=== PATIENT | male | born 1970 | race Caucasian/White ===

== ENCOUNTER 2017-04-22 07:34 | Observation (INO) ==
[~2017-04-22 07:34] MED LIST: LIDOCAINE W/ SODIUM BICARB 0.5 ML SYR ONE; Lactated Ringers 1,000 ML PRIMARY IV ONE; PROPOFOL 10 MG/1 ML (200 MG/20 ML) VIAL IV ONE
[2017-04-22] MEDS ORDERED: LIDOCAINE W/ SODIUM BICARB 0.5 ML SYR SUBD ONE (08:00)
[2017-04-22] MEDS: Lactated Ringers 1,000 ML PRIMARY IV SCH ×2 (08:10→14:47)
--- NOTE | 2017-04-22 09:26 | GEN.OPNOTE ---
Colonoscopy Procedure Note Surgery Date: 04/22/17 Preoperative Diagnosis: History of diverticulitis. Colovesical fistula. Postoperative Diagnosis: Same. Procedure: Complete colonoscopy with biopsies at 20 cm from the anal verge. Surgeon: Candelario Plummer MD Anesthesia Provider: Priscila Washington CRNA Anesthesia Type: MAC Indications: Patient is a 46-year-old male who had diverticulitis approximately a month ago. He had a follow-up CT which showed air in his bladder. He has a colovesical fistula and a history of acute diverticulitis. He is taken for colonoscopic evaluation. Findings: Prep : [Excellent] Cecum : [Normal] Ascending : [Normal] Transverse : [Normal] Sigmoid : [Diverticulosis. Inflammatory changes and narrowing at 20 cm from the anal verge. Biopsies were taken. Mucosa appeared inflamed.] Rectum : [Normal] Digital Rectal Exam : [No perianal pathology. Prostate of normal size and consistency.] A lubricated flexible colonoscope was inserted and passed to the blind end of the cecum. The appendiceal orifice and ileocecal valve were clearly seen. Air was aspirated as the scope was withdrawn. The cecum, ascending colon, hepatic flexure, transverse colon, splenic flexure, and descending colon were unremarkable. In the sigmoid colon there is an area of diverticulosis. There is erythema and friability of the mucosa. Multiple biopsies were taken. Hemostasis was assured. There was narrowing of the colon at this area also. The scope was withdrawn into the remainder of a normal distal sigmoid colon and rectum. The scope was withdrawn completing the procedure. The patient tolerated the entire procedure well without complication. He was taken to outpatient surgery in stable condition. Follow-up will be in my office after he sees the urologist on the . He is scheduled for consultation and cystoscopy at that time. We will discuss the biopsies and plan surgical treatment for his colovesical fistula.
--- NOTE | 2017-04-22 11:41 | CRNA.PROGR ---
Post Anesthesia Phase II - Post Anesthesia Phase II Patient Stable and Discharged To: Phase II Care Assumed By Surgeon: Candelario Plummer MD Temperature: 97.3 F Pulse Rate: 85 Respiratory Rate: 19 Blood Pressure: 155/123 Pulse Ox: 90 Total Wilfrido Score at Discharge: 9 Post Anesthesia Discharge Criteria Met: Yes
--- NOTE | 2017-04-22 11:41 | CRNA.PROGR ---
Anesthesia Time - - Start date: 04/22/17 End date: 04/22/17 - Procedure/Recovery Time Anesthesia : Time In: 08:39 Anesthesia : Time Out: 09:22 Anesthesia : Total Time: 43 - Total Anesthesia Time Total Anesthesia Time (minutes): 43 - Other Weight: 66.678 kg Height: 5 ft 6 in Body Mass Index (BMI): 23.7 Physical Status: P3 (Tobacco, Heavy alcohol use.) Anesthesia Type: MAC
--- NOTE | 2017-04-22 13:26 | DI ---
KUB and UPRIGHT ABDOMEN, 04/22/2017 12:58 PM: Clinical History: Abdominal pain following colonoscopy. The procedure was performed approximately 2 h ours earlier. Previous Exam: None at this facility. There are no soft tissue or bony abnormalities. There is a large amount of gas in the cecum and a mod erate amount in the transverse colon but the remainder of the large bowel is completely decompressed. The cecum has an estimated diameter between 10-12 centimeters. There is no free air or fluid. There are no abnormal radiodensities. Readin. There is no evidence of free air in the abdomen following the colonoscopy procedure. 2. The cecum is distended with air. It is "malrotated" and lies in the epigastric region. It is dist ended to a caliber between 10-12 cm.
--- NOTE | 2017-04-22 13:47 | PDOC(PROG) ---
Date and Time of Service: 04/22/2017 1:30 PM Interval History: Patient underwent a colonoscopy earlier today. He has diverticulosis, a history of diverticulitis, and a colovesical fistula. He had a narrow spot in his sigmoid colon. There was also inflammation. I tried to aspirate as much air as possible but postoperatively the patient was uncomfortable and distended. He is passing some gas but remains distended. An x-ray shows a lot of gas still in the cecum. The cecum is dilated. There is no free air. The rest of the colon is largely decompressed. There is gas in the rectum. He is much more comfortable than initially. [place] about [place] out of [place]. He certainly does not have an acute abdomen. I told him the safest thing is to watch him overnight to make sure he clears all that air. We will check an x-ray in the morning and plan discharge then. If he does not clear the air we may need to consider colonoscopic decompression. The reason to not do that at this time is that I'm worried about the narrowed area at his colovesical fistula site. I'm worried that we may introduce more air and make things worse. I discussed all the above with the patient. She is going to spend the night in observation status. We'll plan home tomorrow. Objective : Data - Vital Signs Vital Signs and I&O: Vital Signs - Last Taken Temperature 97.3 F 04/22/17 11:41 Pulse Rate 95 04/22/17 12:45 Respiratory Rate 16 04/22/17 12:45 Blood Pressure 119/100 04/22/17 12:45 Pulse Ox 91 04/22/17 12:45 Intake and Output (24hr x 4 totals) 04/20/17 04/21/17 04/22/17 04/23/17 05:59 05:59 05:59 05:59 Intake Total 500 / 500 Balance 500 / 500 Objective : Exam - General General Appearance: Cooperative, Mild Distress - Respiratory Respiratory Exam: Clear to Auscultation - Bilaterally, Breathing Non Labored - Cardiovascular Cardiovascular Exam: No Murmur - GI/Abdominal GI/Abdominal Exam: Normal Bowel Sounds, Soft, Distended Additional GI/Abdominal Exam Details: Abdomen is full but soft. It is tympanitic. There is no significant abdominal tenderness. There are good bowel tones. - Neurological Neurological Exam: Alert, Oriented x 3 - Psychiatric Psychiatric Exam: Normal Affect, Normal Mood Assessment and Plan - Patient Problems (1) Colon distention Current Visit: Yes Status: Acute Priority: High Onset Date: 04/22/17 Comment: Clearly related to his colonoscopy. With this area of stricture and inflammation I think it is important to watch him and make sure he passes this gas and decompresses his cecum prior to discharging him home. We'll admit for overnight observation. Clear liquids tonight. Check an x-ray in the morning. Code(s): K63.89 - Other specified diseases of intestine (2) Colovesical fistula Current Visit: Yes Status: Acute Comment: Chronic and stable. Inflammation at the site. Roughly 20 cm from the anal verge. Code(s): N32.1 - Vesicointestinal fistula
[2017-04-22] MEDS ORDERED: NORMAL SALINE 10 ML SYRINGE FLUSH IVP PRN (14:20)
[2017-04-22] MEDS ORDERED: Lactated Ringers 1,000 ML PRIMARY IV SCH (14:20)
--- NOTE | 2017-04-22 19:44 | PDOC(PROG) ---
General Note Progress Note: The patient underwent colonoscopy approximately 11 hours ago. He had a sigmoid stricture at the site of his colovesical fistula. There was inflamed tissue and I needed to do some biopsies. I believe I introduced some air at that time as it was difficult to visualize this area. I tried to remove all the air but a postoperative x-ray showed a distended cecum. It measured between 11 and 12 cm. This was several hours after the procedure. There was no free air. There was a lot of air in the transverse colon but the distal colon was decompressed. There was some air in the rectum. He was admitted for observation as he lives about an hour from the hospital. I came to check on him this evening. He remains distended. He is having intermittent cramping but no constant abdominal pain. He reports he is pain free when he is laying in bed until cramps hit him. He has passed some flatus but not a lot. He has been ambulating. He has tried multiple positions. I would have expected the air to pass by now. On physical examination his abdomen is distended and tympanitic. He has rushes and tinkles. He has some diffuse mild tenderness. Certainly not an acute abdomen. I think he needs decompression. I'm worried about a possible cecal volvulus or a cecal bascule. I have recommended and he has accepted colonoscopic decompression.The procedure has been discussed with the patient in complete yet simple terms including benefits, risks, and alternatives. All questions have been answered. Informed consent has been obtained. If that does not work we'll need to consider a Gastrografin enema. Further recommendations pending the findings. Patient Problems - Patient Problem List (1) Colon distention Current Visit: Yes Status: Acute Onset Date: 04/22/17 Priority: High Code(s): K63.89 - Other specified diseases of intestine Category: Medical (2) Colovesical fistula Current Visit: Yes Status: Acute Code(s): N32.1 - Vesicointestinal fistula Category: Medical
[2017-04-22] MEDS ORDERED: MIDAZOLAM 5 MG/1 ML ONE (19:45)
[2017-04-22] MEDS ORDERED: PROPOFOL 10 MG/1 ML (200 MG/20 ML) VIAL IV ONE (19:45)
[2017-04-22] MEDS ORDERED: D5-1/2NS + 20mEq KCL 1,000 ML PRIMARY IV SCH (20:15)
--- NOTE | 2017-04-22 20:23 | GEN.OPNOTE ---
Colonoscopy Procedure Note Surgery Date: 04/22/17 Preoperative Diagnosis: Post-colonoscopy cecal distention, diverticular stricture of the sigmoid colon, colovesical fistula. Postoperative Diagnosis: Post-colonoscopy cecal distention, diverticular stricture of the sigmoid colon, colovesical fistula. Procedure: Complete colonoscopy with decompression. Surgeon: Candelario Plummer MD Anesthesia Provider: Priscila Washington CRNA Anesthesia Type: MAC Indications: Patient underwent colonoscopy approximately 12 hours ago. He had a significant cecal distention several hours postoperatively, on x-rays. I came to see him this evening and he was still having a lot of cramps and pain. He was quite distended. He was not passing that much gas. I was worried about a possible volvulus or cecal bascule. I thought it was best to decompress the cecum to prevent problems. He was taken for colonoscopy for decompression. Findings: Prep : [Adequate] Cecum : [Distended. Decompressed. Viable mucosa.] Ascending : [Normal] Transverse : [Normal] Sigmoid : [Diverticular stricture and colovesical fistula with inflammatory tissue] Rectum : [Normal] Digital Rectal Exam : [Normal] A lubricated flexible colonoscope was inserted and passed to the blind end of the cecum. It was difficult to pass the scope through the diverticular stricture. Once through the scope was passed to the blind end of the cecum. The ileocecal valve and the appendiceal orifice were seen. The colon was decompressed as the scope was withdrawn. The scope was withdrawn completing the procedure. The patient tolerated the procedure well without complication. He will be taken back to observation in stable condition. His abdomen is soft at this time. It is no longer distended. We'll check an x-ray in the morning and plan discharged if tolerating diet.
--- NOTE | 2017-04-22 20:34 | CRNA.PROGR ---
Anesthesia Time - - Start date: 04/22/17 End date: 04/22/17 - Procedure/Recovery Time Anesthesia : Time In: 19:37 Anesthesia : Time Out: 20:23 Anesthesia : Total Time: 46 - Total Anesthesia Time Total Anesthesia Time (minutes): 46 - Other Weight: 66.678 kg Height: 5 ft 6 in Body Mass Index (BMI): 23.7 Physical Status: P3 (Tobacco, alcohol) Anesthesia Type: MAC
--- NOTE | 2017-04-22 20:35 | CRNA.PROGR ---
Post Anesthesia Phase II - Post Anesthesia Phase II Patient Stable and Discharged To: Med/Surg Care Assumed By Surgeon: Candelario Plummer MD Temperature: 98.1 F Pulse Rate: 95 Respiratory Rate: 25 Blood Pressure: 119/79 Pulse Ox: 100 Total Wilfrido Score at Discharge: 9 Post Anesthesia Discharge Criteria Met: Yes Additional Details: Decompression colonoscopy. Pt's symptoms greatly relieved.
[2017-04-22] MEDS: Amoxicill/Clav 875/125mg Tab 1 TAB TAB PO SCH (20:58)
[2017-04-22] MEDS ORDERED: LISINOPRIL 10 MG TABLET PO SCH (21:00)
[2017-04-22] MEDS: NICOTINE 21 MG /DAY PATCH TRANSDERM SCH (22:59)
[2017-04-23 06:45] VITALS: BP 142/97; RESP 18; TEMP 97.3; O2SAT 96
[2017-04-23] MEDS ORDERED: PANTOPRAZOLE 40 MG TABLET PO SCH (07:00)
--- NOTE | 2017-04-23 07:44 | DI ---
EXAM: XR Abdomen, 2 Views CLINICAL HISTORY: abdominal distention. Colovesical fistula TECHNIQUE: Frontal view of the abdomen/pelvis with upright view of the abdomen. COMPARISON: No relevant prior studies available. FINDINGS: Intraperitoneal space: No free air. Gastrointestinal tract: Prominent loops of gas-filled small bowel in the left hemiabdomen. Findings are non-specific with an ileus or early bowel obstruction not excluded. Cecum is gas-filled and dilated within the right upper quadrant. Cecal volvulus is not excluded. Bones/joints: Unremarkable. IMPRESSION: 1. Prominent loops of gas-filled small bowel in the left hemiabdomen. Findings are non-specific with an ileus or early bowel obstruction not excluded. 2. Cecum is gas-filled and dilated within the right upper quadrant. Cecal volvulus is not excluded.
[2017-04-23] MEDS: NICOTINE 21 MG /DAY PATCH TRANSDERM SCH (09:57)
[2017-04-23] MEDS: Amoxicill/Clav 875/125mg Tab 1 TAB TAB PO SCH (10:00)
--- NOTE | 2017-04-23 12:00 | DCSUMMARY ---
Discharge Summary Admit Date: 04/22/17 Discharge Date: 04/23/17 Admitting Diagnosis: cecal distention post-colonoscopy. The colovesical fistula. Sigmoid stric Discharge Diagnosis: Same. Primary Surgery and Date: Colonoscopy 2 04/22/2017. 1 diagnostic and 1 for decompression. Hospital Course: Patient underwent colonoscopy for known diverticular disease and a colovesical fistula on 04/22/2017. There is narrowing of the sigmoid colon and inflammatory changes. Biopsies were taken. Other than that his colonoscopy was unremarkable. Post-colonoscopy he was very distended. I watched him in outpatient surgery for several hours. He was passing minimal gas. X-rays showed a lot of gas in the cecum. We admitted him for observation. He did not pass very much gas by evening when I came back to see him. He had rushes and tinkles. I took him back to the endoscopy suite for colonoscopic decompression. The scope was advanced to the cecum. After decompression his abdomen was soft and flat. He was on clear liquids overnight. This morning he denies abdominal pain. He has an occasional mild gas cramps. He feels much better than he did prior to decompressing colonoscopy last evening. He has been ambulating. He is tolerating clear liquids. He is voiding. He is passing some gas. He has not had a bowel movement but he has not eaten any solid food since his bowel prep. X-ray this a.m. shows a fair amount of gas and a high riding cecum. It seems that he has a mobile cecum. The position of the cecum seems to change between the x-rays. There is gas throughout the colon. I reviewed the x-ray with the radiologist. I have discussed everything in detail with the patient. I have given him the option of staying and advancing his diet or going home and doing the same. He wishes to go home. I have told him to start with a full liquid diet and advance as tolerated to a low residue diet. He may resume activities as tolerated. I have told him to take it easy this weekend. For nausea, vomiting, increased abdominal distention or increased abdominal pain he needs to return to the emergency room [facility]. As long as he is doing well he will keep his appointment with the urologist for cystoscopy on Tuesday the . He has an appointment to see me on the to schedule surgery for takedown of his colovesical fistula and partial colectomy. Exam - Vitals Vital Signs: Vital Signs Temperature 97.3 F Temperature Source Temporal Artery Scan Pulse Rate [Pulse Oximeter] 80 Pulse Rate 95 Respiratory Rate 18 Blood Pressure [Left Arm] 142/97 Blood Pressure 119/79 Pulse Ox 96 Oxygen Flow Rate RA Oxygen Delivery Method Room Air Height 5 ft 6 in Weight 147 lb 9.6 oz - General General Appearance: No Acute Distress, Cooperative - Respiratory Respiratory Exam: POSITIVE: Clear to Auscultation - Bilaterally, Breathing Non Labored - Cardiovascular Cardiovascular Exam: POSITIVE: RRR, No Murmur - GI/Abdominal GI/Abdominal Exam: POSITIVE: Normal Bowel Sounds, Non Tender, Non Distended, Soft - Neurological Neurological Exam: POSITIVE: Alert, Oriented x 3 - Psychiatric Psychiatric Exam: POSITIVE: Normal Affect, Normal Mood Data Peritnent Studies: Abdominal x-rays 2. See history of present illness. Procedures: Colonoscopy 2. See history of present illness Patient Problems - Patient Problem List (1) Colon distention Current Visit: Yes Status: Acute Onset Date: 04/22/17 Priority: High Comment: Much improved. Still a lot of gas in the cecum. Gas throughout the colon. Abdominal pain markedly improved. We will advance to full liquids and eventually to a low residue diet as tolerated. See history of present illness. Patient desires to do this at home which is reasonable. He is doing well at this time. Code(s): K63.89 - Other specified diseases of intestine Category : Surgical (2) Colovesical fistula Current Visit: Yes Status: Acute Comment: Cystoscopy scheduled 04/27/2017. Preoperative appointment scheduled 04/28/2017. Code(s): N32.1 - Vesicointestinal fistula Category: Surgical
== END 2017-04-23 12:35 | disposition home or self-care (01) ==
LOC: OR 07:34 → MED/SURG 07:34 → OPS 19:42 → MED/SURG 20:34
PROVIDERS: ADMIT Surgery; ATTEND Surgery

== ENCOUNTER 2017-05-23 11:10 | Inpatient (IN) ==
[~2017-05-23 11:10] MED LIST changes: +ERTAPENEM 1 GM VIAL ONE; +LIDOCAINE W/ SODIUM BICARB 0.5 ML SYR SUBD ONE; -PROPOFOL 10 MG/1 ML (200 MG/20 ML) VIAL IV ONE; +Sodium Chloride 0.9% 100 ML IV ONE
[2017-05-23] MEDS: Lactated Ringers 1,000 ML PRIMARY IV SCH ×2 (11:30→18:39)
[2017-05-23] MEDS ORDERED: METHYLENE BLUE 10 MG/1 ML - 10 ML ONE (12:03)
[2017-05-23] MEDS ORDERED: IPRATROPIUM/ALBUTEROL SULFATE 3 ML NEB NEB ONE (12:17)
[2017-05-23] MEDS ORDERED: Ertapenem Inj 1 GM in Sodium Chloride 0.9% 100 ML IV ONE (13:00)
[2017-05-23] MEDS ORDERED: MIDAZOLAM 5 MG/1 ML ONE (13:12)
[2017-05-23] MEDS ORDERED: KETAMINE 100 MG/1 ML - 5 ML ONE (13:12)
[2017-05-23] MEDS ORDERED: Sodium Chloride 0.9% vial 10 ML ONE (13:12)
[2017-05-23] MEDS ORDERED: SUFENTANIL 50 MCG/1 ML ONE (13:12)
[2017-05-23] MEDS ORDERED: LIDOCAINE MPF 2% - 5 ML (20 MG/1 ML) ONE (13:12)
[2017-05-23] MEDS ORDERED: PROPOFOL 10 MG/1 ML (200 MG/20 ML) VIAL IV ONE (13:15)
[2017-05-23] MEDS ORDERED: VECURONIUM BROMIDE 10 MG VIAL ONE (14:35)
[2017-05-23] MEDS ORDERED: DEXAMETHASONE PF 10 MG/1 ML VIAL ONE (14:42)
[2017-05-23] MEDS ORDERED: ENALAPRILAT DIHYDRATE 1.25 MG/1 ML VIAL ONE (14:42)
[2017-05-23] MEDS ORDERED: HYDROmorphone 2 MG/1 ML ONE (15:01)
[2017-05-23] MEDS ORDERED: BUPivacaine Liposome/PF (Exparel) Inj 20ml vial INFIL ONE (15:20)
[2017-05-23] MEDS ORDERED: Sodium Chloride 0.9% vial 40 ML ONE (15:20)
--- NOTE | 2017-05-23 15:30 | CRNA.PROGR ---
Anesthesia Time - - Start date: 05/23/17 End date: 05/23/17 - Procedure/Recovery Time Anesthesia : Time In: 13:28 Anesthesia : Time Out: 16:45 Anesthesia : Total Time: 197 - Total Anesthesia Time Total Anesthesia Time (minutes): 197 - Other Weight: 66.224 kg Height: 5 ft 7 in Body Mass Index (BMI): 22.8 Physical Status: P2 (Tobacco, ETOH, HTN) Anesthesia Type: General Anesthesia : ET
[2017-05-23] MEDS ORDERED: Lactated Ringers 3,000 ML PRIMARY IV ONE (15:51)
[2017-05-23] MEDS ORDERED: NEOSTIGMINE 1 MG/1 ML - 10 ML ONE (16:23)
[2017-05-23] MEDS ORDERED: GLYCOPYRROLATE 0.2 MG/1 ML VIAL ONE (16:23)
[2017-05-23] MEDS ORDERED: Acetaminophen 1000mg Inj 1,000 MG/100 ML VIAL IV ONE ×2 (16:46→16:55)
--- NOTE | 2017-05-23 16:54 | CRNA.PROGR ---
Anesthesia Recovery Phase I - Post Anesthesia Evaluation Patient's Condition on Arrival in Phase I: Stable Patient's Condition on Arrival in Phase II: Stable Pain Level: 2
[2017-05-23] MEDS ORDERED: ATROPINE SULFATE 0.4 MG/1 ML VIAL IVP PRN (16:55)
[2017-05-23] MEDS ORDERED: fentaNYL Inj 100 MCG/2 ML VIAL IVP PRN (16:55)
[2017-05-23] MEDS ORDERED: ONDANSETRON 4 MG/2 ML VIAL IVP PRN ×2 (16:55→17:58)
[2017-05-23] MEDS ORDERED: Ondansetron ODT Tab 8 MG TAB PO PRN (16:55)
[2017-05-23] MEDS ORDERED: NORMAL SALINE 10 ML SYRINGE FLUSH IVP PRN (16:55)
[2017-05-23] MEDS ORDERED: HYDROmorphone 2 MG/1 ML IVP PRN (16:55)
--- NOTE | 2017-05-23 16:55 | GEN.OPNOTE ---
Operative Note Surgery Date: 05/23/17 Preoperative Diagnosis: History of acute diverticulitis. Colovesical fistula. Postoperative Diagnosis: History of acute diverticulitis. Colovesical fistula. Procedure: #1 Left colectomy with low pelvic anastomosis. #2 takedown of the splenic flexure. #3 suture repair of bladder. Surgeon: Candelario Plummer MD Bottle And Glass Inspector: Jaron Cruz MD Anesthesia Provider: Priscila Washington CRNA Anesthesia Type: General Estimated Blood Loss (mL): 450 Fluids: 4100 mL of crystalloid. 1 g of IV Invanz at the start of the procedure. 1 g of IV Tylenol at the end of the procedure. Urine output 350cc intraoperatively. Pathology: Specimen to pathology included the left colon as well as the anastomotic rings. There was also some omentum. Indications: Patient is a 46-year-old male who had a bout of acute diverticulitis. That resolved. He developed a colovesical fistula. He had a cystoscopy done which showed reactive change. He was taken to the operating room for sigmoid colectomy with planned anastomosis. Findings: Sigmoid colon densely adherent to the dome of the bladder and the lateral pelvic sidewall. Floppy cecum. No other intra-abdominal pathology. Complications: None. Operative Summary: The patient was taken to the operating suite and placed on the operating table in a supine position. Following induction of general anesthetic the patient was placed in low universal stirrups and a Tena catheter was placed. A surgical timeout was done. The abdomen was prepped and draped in a sterile fashion. A midline incision was made and carried down through the subcutaneous tissue to the fascia. The fascia was incised with electrocautery and the peritoneal cavity was entered. An Salo wound retractor was placed. Appropriate packing was done to visualize the descending and sigmoid colon. The colon was densely adherent to the lateral abdominal sidewall as well as the dome of the bladder.. This was taken down both sharply and bluntly until the sigmoid colon was fully mobilized. 300 mL of saline with methylene blue was instilled into the bladder. There was a tiny leak at the site of the fistula. This was closed with 2 simple sutures of 2-0 Vicryl. At the end of the procedure a patch of omentum was tacked over this repair. This was to keep the colon and the anastomosis away from the area of the fistula. The distal colonic transection site was chosen. This was just above the rectum. The bowel was cleared of the paracolonic tissue and stapled off with a linear 60 mm stapling device. I used a green load. A bowel clamp was placed on the proximal bowel and the bowel was divided. Staying close to the bowel wall the mesocolon was taken down by serially clamping, dividing and ligating the mesocolon with 0 Vicryl sutures. The diseased bowel was long enough that the splenic flexure needed to be taken down to accomplish a tension-free anastomosis. This was done with electrocautery. Several vessels were also clamped. The omentum was freed off the transverse colon. The splenic flexure was fully mobilized. The sigmoid colon was assessed. Approximately 1.5 feet of it was diseased. The proximal transection site was chosen. A pursestring clamp was placed across the bowel. A 2-0 Maxon was used to create the pursestring. A clamp was placed distally and the bowel was divided. The sigmoid colon was removed from the operative field. We had enough colon after mobilization of the splenic flexure to perform a tension-free anastomosis. The abdomen was extensively irrigated. Hemostasis was assured. There was some bleeding of the omentum which was adherent to the inflammatory process in the pelvis. Some of the tip of the omentum was excised by clamping dividing and ligating the edge of the omentum., The proximal bowel was sized appropriately. A 31 mm intraluminal stapler was chosen. The anvil was placed in the proximal bowel. The pursestring suture was tied. At this point the procedure Dr. Cruz went down to the perineal side. Sequential dilators were passed per rectum and finally the 31 mm stapling device was passed to the end of the rectal stump. The trocar was passed through the bowel. The proximal and distal parts of the stapler were connected and the device was closed and fired. It was partially opened and removed. A bowel clamp was placed on the proximal colon. A colonoscope was inserted and air was insufflated into the rectum and distal bowel. Irrigation fluid was placed in the pelvis. There was no air leak from a sound anastomosis. The anastomosis was inspected with a colonoscope and was hemostatic and widely patent. The air was aspirated and the scope was withdrawn. Again the anastomosis was tension free. All personnel changed gowns and gloves. The abdomen was extensively irrigated. Hemostasis was assured. Intestinal contents were returned to a relative anatomic position and covered with omentum. The midline fascia was closed with running #1 Vicryl. The subcutaneous tissue was irrigated. It was infiltrated with Exparel circumferentially. The skin was reapproximated using surgical rodger followed by an appropriate dressing. The patient tolerated the entire procedure well without complication. She was taken to the postanesthesia care unit in stable condition. All counts were correct. Procedure Codes - Surgical Procedures Primary Surgical Procedure: 99236 : Colectomy, Coloproctostmy Secondary Surgical Procedure: Other CPT Code(s) (70331-wmge down of the splenic flexure.)
[2017-05-23] MEDS ORDERED: Lactated Ringers 1,000 ML PRIMARY IV SCH (17:00)
[2017-05-23] MEDS ORDERED: KETOROLAC 30 MG/1 ML VIAL ONE (17:36)
[2017-05-23] MEDS: KETOROLAC 30 MG/1 ML VIAL IVP SCH ×2 (17:40→23:00)
[2017-05-23] MEDS: HYDROmorphone 2 MG/1 ML IVP PRN ×2 (19:07→21:15)
[2017-05-23] MEDS: D5-1/2NS + 20mEq KCL 1,000 ML PRIMARY IV SCH (21:15)
[2017-05-24] MEDS: HYDROmorphone 2 MG/1 ML IVP PRN ×8 (00:24→23:47)
[2017-05-24] MEDS: Acetaminophen 1000mg Inj 1,000 MG/100 ML VIAL IV SCH ×3 (00:57→17:34)
[2017-05-24 05:03] LABS: BASOPHILS # (AUTO) 0 10*3/UL; BASOPHILS % (AUTO) 0 % (0-1); EOSINOPHILS # (AUTO) 0 10*3/UL; EOSINOPHILS % (AUTO) 0 % (0-8); Hematocrit [HCT] 37.6 % (42.0-52.0); Hemoglobin [HGB] 12.3 g/dL (14.0-18.0); LYMPHOCYTES # (AUTO) 0.66 10*3/uL; MEAN CORPUSCULAR HEMOGLOBIN 27.6 PG (27-31); MEAN CORPUSCULAR HGB CONC 32.7 g/dL (33-37); MEAN CORPUSCULAR VOLUME 84.5 FL (80-90); MEAN PLATELET VOLUME 9.1 FL (7.4-12.2); MONOCYTES # (AUTO) 0.85 10*3/UL (0.3-0.8); MONOCYTES % (AUTO) 7.2 % (5-15); NEUTROPHILS % (AUTO) 87.1 % (50-80); RED BLOOD COUNT 4.45 10^6/uL (4.70-6.10)
[2017-05-24] MEDS: KETOROLAC 30 MG/1 ML VIAL IVP SCH ×4 (05:25→23:45)
[2017-05-24 05:26] LABS: BLOOD UREA NITROGEN 8 mg/dL (7-22); SERUM ALBUMIN 3.2 g/dL (3.5-4.8)
[2017-05-24] MEDS: D5-1/2NS + 20mEq KCL 1,000 ML PRIMARY IV SCH ×4 (05:26→23:50)
[2017-05-24 06:25] LABS: PLATELET MORPHOLOGY COMMENT NORMAL MORPHOLOGY (NORM); RBC MORPHOLOGY COMMENT NORMAL MORPHOLOGY (NORM); WBC MORPHOLOGY COMMENT NORMAL MORPHOLOGY (NORM)
[2017-05-24] MEDS: Pantoprazole Inj 40 MG in Normal Saline Flush 10 ML IVP SCH (09:23)
--- NOTE | 2017-05-24 11:44 | PDOC(PROG) ---
Subjective Post Op Day: 1 Pain Management: IV Dilaudid, Toradol, and Tylenol. Tena Catheter: Yes Flatus: No Diet: NPO (With a few ice chips.) Ambulating: Yes Date and Time of Service: 05/24/2017 11:40 AM Interval History: Overall doing okay. He is using IV Dilaudid, Toradol, and Tylenol. Rates his pain and about a 5. Has some incisional tenderness. Denies nausea or flatus. He has been ambulatory. Urine output is good via the Tena. I discussed the surgical findings with the patient. Objective : Data - Labs CBC and BMP: 05/24/17 04:15 05/24/17 04:15 - Vital Signs Vital Signs and I&O: Vital Signs - Last Taken Temperature 97.7 F 05/24/17 11:13 Pulse Rate 89 05/24/17 11:13 Respiratory Rate 17 05/24/17 11:13 Blood Pressure 114/71 05/24/17 11:13 Pulse Ox 96 05/24/17 11:13 Intake and Output (24hr x 4 totals) 05/22/17 05/23/17 05/24/17 05/25/17 05:59 05:59 05:59 05:59 Intake Total 6385 / 6385 Output Total 2825 / 2825 550 / 550 Balance 3560 / 3560 -550 / -550 Objective : Exam - General General Appearance: No Acute Distress, Cooperative - Respiratory Respiratory Exam: Clear to Auscultation - Bilaterally, Breathing Non Labored - Cardiovascular Cardiovascular Exam: RRR, No Murmur - GI/Abdominal GI/Abdominal Exam: Non Distended, Soft, Hypoactive Bowel Sounds Additional GI/Abdominal Exam Details: The dressing is clean and dry and intact. The abdomen is soft. Fairly good bowel tones. Incisional tenderness. - Neurological Neurological Exam: Alert, Oriented x 3 - Psychiatric Psychiatric Exam: Normal Affect, Normal Mood Assessment and Plan - Patient Problems (1) Status post partial colectomy Current Visit: Yes Status: Acute Priority: High Onset Date: 05/23/17 Comment: Initially stable postop. Pain control seems good. Continue postoperative care. We will decrease his IV fluids a bit. Check a.m. labs. Continue to monitor for return of GI function. Code(s): Z90.49 - Acquired absence of other specified parts of digestive tract (2) Colovesical fistula Current Visit: Yes Status: Acute Priority: High Comment: Surgically corrected. Leave Tena catheter in place. Code(s): N32.1 - Vesicointestinal fistula
[2017-05-24] MEDS: Ertapenem Inj 1 GM in Sodium Chloride 0.9% 100 ML IV SCH (13:10)
--- NOTE | 2017-05-24 15:05 | CRNA.PROGR ---
Anesthesia Note - Progress Notes Anesthesia Progress Note: Resting in bed. Coughing and deep breathing. Encouraged to continue doing so. Has ambulated times 2 this am. That also encouraged. Hasn't been nauseated. More afraid of having pain than actually having pain. Tena output brisk. Laboratory Results 05/24/17 05/24/17 Range/Units 04:15 04:15 WBC 11.82 H (4.8-10.8) 10^3/uL RBC 4.45 L (4.70-6.10) 10^6/uL Hgb 12.3 L (14.0-18.0) g/dL Hct 37.6 L (42.0-52.0) % MCV 84.5 (80-90) FL MCH 27.6 (27-31) PG MCHC 32.7 L (33-37) g/dL RDW Std Deviation 40.5 (39-50) fL RDW Coeff of Holden 13.2 (11.5-14.5) % Plt Count 293 (140-350) 10*3/uL MPV 9.1 (7.4-12.2) FL Immature Gran % (Auto) 0.1 (0-5) % Neut % (Auto) 87.1 H (50-80) % Lymph % (Auto) 5.6 L (10-50) % [place]arro % (Auto) 7.2 (5-15) % Eos % (Auto) 0 (0-8) % Baso % (Auto) 0 (0-1) % Immature Gran # (Auto) 0.01 10*3/UL Neut # (Auto) 10.30 10*3/UL Lymph # (Auto) 0.66 10*3/uL [place]arro # (Auto) 0.85 H (0.3-0.8) 10*3/UL Eos # (Auto) 0 10*3/UL Baso # (Auto) 0 10*3/UL WBC Morphology Comment Normal morphology (NORM) Plt Morphology Comment Normal morphology (NORM) RBC Morph Comment Normal morphology (NORM) Sodium 132 L (135-145) meq/L Potassium 4.1 (3.8-5.2) meq/L Chloride 99 (98-112) meq/L Carbon Dioxide 25 (23-33) meq/L Anion Gap 8 (5-20) BUN 8 (7-22) mg/dL Creatinine 0.5 L (0.70-1.50) mg/dL Estimated GFR > 60 (>60 ml/min/1.73m(2)) BUN/Creatinine Ratio 16.00 (6-20) Glucose 216 H (78-110) mg/dL Calculated Osmolality 278.0 (267-292) mOsm/kg Calcium 8.4 L (8.7-10.7) mg/dL Total Bilirubin 0.7 (0.3-1.2) mg/dL AST 53 (21-57) IU/L ALT 16 L (21-72) IU/L Alkaline Phosphatase 90 (38-126) IU/L Total Protein 6.0 L (6.1-8.0) g/dL Albumin 3.2 L (3.5-4.8) g/dL Globulin 2.8 (2.50-4.10) g/dL Albumin/Globulin Ratio 1.10 L (1.3-2.0) mg/g Vital Signs - Last Taken Temperature 97.7 F 05/24/17 11:13 Pulse Rate 89 05/24/17 11:13 Respiratory Rate 17 05/24/17 11:13 Blood Pressure 114/71 05/24/17 11:13 Pulse Ox 96 05/24/17 11:13 Intake and Output - 8hrs 05/23/17 05/24/17 05/24/17 05/24/17 21:59 05:59 13:59 21:59 Intake: IV 4700 / 4700 1540 / 1540 Intake Oral Amount 25 / 25 120 / 120 Output: Output, Urinary Catheter Amount 500 / 500 1525 / 1525 550 / 550 Output, Urine Amount 350 / 350 Output, Estimated Blood Loss 450 / 450 Amount Other: Percent Meal Consumed Breakfast NPO Dinner NPO Lunch NPO Weight 66.224 kg 66.497 kg Weight Measurement Method Standing Scale Encouraged splinting when coughing. Suggested maybe recliner more comfortable than bed . No apparent anesthetic difficulties. Priscila Washington MS, [employer]
[2017-05-25] MEDS: Acetaminophen 1000mg Inj 1,000 MG/100 ML VIAL IV SCH ×3 (01:36→17:22)
[2017-05-25] MEDS: HYDROmorphone 2 MG/1 ML IVP PRN ×5 (03:51→23:41)
[2017-05-25 05:14] LABS: BASOPHILS # (AUTO) 0.01 10*3/UL; BASOPHILS % (AUTO) 0.1 % (0-1); EOSINOPHILS # (AUTO) 0.08 10*3/UL; Hematocrit [HCT] 29.6 % (42.0-52.0); Hemoglobin [HGB] 9.5 g/dL (14.0-18.0); LYMPHOCYTES # (AUTO) 1.62 10*3/uL; MEAN CORPUSCULAR HEMOGLOBIN 27.7 PG (27-31); MEAN CORPUSCULAR HGB CONC 32.1 g/dL (33-37); MEAN CORPUSCULAR VOLUME 86.3 FL (80-90); MEAN PLATELET VOLUME 9.2 FL (7.4-12.2); MONOCYTES # (AUTO) 0.73 10*3/UL (0.3-0.8); MONOCYTES % (AUTO) 9.3 % (5-15); NEUTROPHILS # (AUTO) 5.39 10*3/UL; NEUTROPHILS % (AUTO) 68.8 % (50-80); RED BLOOD COUNT 3.43 10^6/uL (4.70-6.10)
[2017-05-25 05:26] LABS: BLOOD UREA NITROGEN 8 mg/dL (7-22); BUN/CREATININE RATIO 13.33 (6-20); SERUM ALBUMIN 2.9 g/dL (3.5-4.8)
[2017-05-25] MEDS: KETOROLAC 30 MG/1 ML VIAL IVP SCH ×2 (05:30→10:39)
[2017-05-25 05:42] LABS: PLATELET MORPHOLOGY COMMENT NORMAL MORPHOLOGY (NORM); RBC MORPHOLOGY COMMENT NORMAL MORPHOLOGY (NORM); WBC MORPHOLOGY COMMENT NORMAL MORPHOLOGY (NORM)
[2017-05-25] MEDS: Pantoprazole Inj 40 MG in Normal Saline Flush 10 ML IVP SCH (08:52)
[2017-05-25] MEDS: D5-1/2NS + 20mEq KCL 1,000 ML PRIMARY IV SCH (12:03)
--- NOTE | 2017-05-25 13:19 | PDOC(PROG) ---
Subjective Post Op Day: 2 Pain Management: IV Dilaudid, Toradol, and Tylenol. Tena Catheter: Yes Flatus: Yes Diet: ice chips Ambulating: Yes Date and Time of Service: 05/25/2017. Patient seen at 12 noon. Interval History: Reports he is doing better than yesterday. Feels like he is hydrated. He is passing some gas. He had 200 mL of bloody stool last evening. None since. His pain is well controlled. His Tena catheter is bothering him. He denies nausea, vomiting, or heartburn. He is ambulating. He has no specific complaints or concerns at this time. Objective : Data - Labs CBC and BMP: 05/25/17 04:22 05/25/17 04:22 - Vital Signs Vital Signs and I&O: Vital Signs - Last Taken Temperature 97.8 F 05/25/17 11:58 Pulse Rate 91 05/25/17 11:58 Respiratory Rate 18 05/25/17 11:58 Blood Pressure 134/83 05/25/17 11:58 Pulse Ox 96 05/25/17 11:58 Intake and Output (24hr x 4 totals) 05/23/17 05/24/17 05/25/17 05/26/17 05:59 05:59 05:59 05:59 Intake Total 6385 / 6385 2736 / 2736 60 / 60 Output Total 2825 / 2825 1700 / 1700 Balance 3560 / 3560 1036 / 1036 60 / 60 Objective : Exam - General General Appearance: No Acute Distress, Cooperative - Respiratory Respiratory Exam: Clear to Auscultation - Bilaterally, Breathing Non Labored - Cardiovascular Cardiovascular Exam: RRR, No Murmur - GI/Abdominal GI/Abdominal Exam: Non Distended, Soft, Hypoactive Bowel Sounds Additional GI/Abdominal Exam Details: The dressing is dry and intact. There is some dried drainage in the center of the gauze. Abdomen is soft and nondistended. Incisional tenderness only. - Extremities Extremities Exam: No Edema Present - Neurological Neurological Exam: Alert, Oriented x 3 - Psychiatric Psychiatric Exam: Normal Affect, Normal Mood Assessment and Plan - Patient Problems (1) Status post partial colectomy Current Visit: Yes Status: Acute Priority: High Onset Date: 05/23/17 Comment: Doing very well. Hemoglobin and hematocrit have dropped. Patient is fluid long. No evidence of ongoing bleeding. We'll continue to monitor labs. We will discontinue Toradol for now. Patient will be started on small amounts of clear liquids. Will diurese. Code(s): Z90.49 - Acquired absence of other specified parts of digestive tract (2) Colovesical fistula Current Visit: Yes Status: Acute Priority: High Comment: Surgically corrected. Leave Tena catheter in place. Code(s): N32.1 - Vesicointestinal fistula
[2017-05-25] MEDS ORDERED: FUROSEMIDE 10 MG/1 ML - 2 ML VIAL IVP ONE (13:23)
[2017-05-25] MEDS ORDERED: D5-1/2NS + 40mEq KCL 1,000 ML PRIMARY IV SCH (13:30)
[2017-05-25] MEDS: Ertapenem Inj 1 GM in Sodium Chloride 0.9% 100 ML IV SCH (13:59)
[2017-05-25] MEDS: D5-1/2NS + 40mEq KCL 1,000 ML PRIMARY IV SCH (14:05)
[2017-05-25 17:34] LABS: BASOPHILS # (AUTO) 0.02 10*3/UL; BASOPHILS % (AUTO) 0.3 % (0-1); EOSINOPHILS # (AUTO) 0.22 10*3/UL; EOSINOPHILS % (AUTO) 2.8 % (0-8); Hematocrit [HCT] 32.1 % (42.0-52.0); Hemoglobin [HGB] 10.5 g/dL (14.0-18.0); MEAN CORPUSCULAR HEMOGLOBIN 27.9 PG (27-31); MEAN CORPUSCULAR HGB CONC 32.7 g/dL (33-37); MEAN CORPUSCULAR VOLUME 85.4 FL (80-90); MEAN PLATELET VOLUME 7.9 FL (7.4-12.2); MONOCYTES # (AUTO) 0.52 10*3/UL (0.3-0.8); MONOCYTES % (AUTO) 6.7 % (5-15); NEUTROPHILS # (AUTO) 5.62 10*3/UL; RED BLOOD COUNT 3.76 10^6/uL (4.70-6.10)
[2017-05-25 17:36] LABS: PLATELET MORPHOLOGY COMMENT NORMAL MORPHOLOGY (NORM); RBC MORPHOLOGY COMMENT NORMAL MORPHOLOGY (NORM); WBC MORPHOLOGY COMMENT NORMAL MORPHOLOGY (NORM)
[2017-05-25] MEDS: NORMAL SALINE 10 ML SYRINGE FLUSH IVP PRN (19:09)
[2017-05-26] MEDS: Acetaminophen 1000mg Inj 1,000 MG/100 ML VIAL IV SCH ×3 (01:20→16:33)
[2017-05-26] MEDS: D5-1/2NS + 40mEq KCL 1,000 ML PRIMARY IV SCH ×2 (01:21→16:33)
[2017-05-26] MEDS: HYDROmorphone 2 MG/1 ML IVP PRN ×6 (03:02→21:43)
[2017-05-26 05:06] LABS: BASOPHILS # (AUTO) 0.02 10*3/UL; BASOPHILS % (AUTO) 0.2 % (0-1); EOSINOPHILS % (AUTO) 4.7 % (0-8); Hematocrit [HCT] 31.5 % (42.0-52.0); Hemoglobin [HGB] 10.3 g/dL (14.0-18.0); LYMPHOCYTES # (AUTO) 1.59 10*3/uL; MEAN CORPUSCULAR HEMOGLOBIN 28.1 PG (27-31); MEAN CORPUSCULAR HGB CONC 32.7 g/dL (33-37); MEAN CORPUSCULAR VOLUME 85.8 FL (80-90); MEAN PLATELET VOLUME 9.1 FL (7.4-12.2); MONOCYTES # (AUTO) 0.73 10*3/UL (0.3-0.8); MONOCYTES % (AUTO) 8.6 % (5-15); NEUTROPHILS # (AUTO) 5.74 10*3/UL; NEUTROPHILS % (AUTO) 67.6 % (50-80); RED BLOOD COUNT 3.67 10^6/uL (4.70-6.10)
[2017-05-26 05:09] LABS: PLATELET MORPHOLOGY COMMENT NORMAL MORPHOLOGY (NORM); RBC MORPHOLOGY COMMENT NORMAL MORPHOLOGY (NORM); WBC MORPHOLOGY COMMENT NORMAL MORPHOLOGY (NORM)
[2017-05-26 05:15] LABS: BLOOD UREA NITROGEN 8 mg/dL (7-22); BUN/CREATININE RATIO 13.33 (6-20); SERUM ALBUMIN 3.2 g/dL (3.5-4.8)
--- NOTE | 2017-05-26 08:48 | PDOC(PROG) ---
Subjective Post Op Day: 3 Pain Management: IV Dilaudid, Tylenol, and Toradol. Tena Catheter: Yes Flatus: No Diet: Clear Liquids (Limited amounts) Ambulating: Yes Date and Time of Service: 05/26/2017 8:30 AM Interval History: Reports he is better every day. Pain is pretty well controlled. He is ambulating. He is not nauseated. He is tolerating his small amounts of clear liquids. No further flatus or bowel movement. The Tena still bothers him. I have told him 1 more day. Objective : Data - Labs CBC and BMP: 05/26/17 04:08 05/26/17 04:08 - Vital Signs Vital Signs and I&O: Vital Signs - Last Taken Temperature 98.0 F 05/26/17 03:27 Pulse Rate 104 H 05/26/17 03:27 Respiratory Rate 20 05/26/17 03:27 Blood Pressure 122/84 05/26/17 03:27 Pulse Ox 93 05/26/17 04:59 Intake and Output (24hr x 4 totals) 05/24/17 05/25/17 05/26/17 05/27/17 05:59 05:59 05:59 05:59 Intake Total 6385 / 6385 2736 / 2736 2826 / 2826 Output Total 2825 / 2825 1700 / 1700 3700 / 3700 Balance 3560 / 3560 1036 / 1036 -874 / -874 Objective : Exam - General General Appearance: No Acute Distress, Cooperative - Respiratory Respiratory Exam: Clear to Auscultation - Bilaterally, Breathing Non Labored, Decreased Breath Sounds (Left base only) - Cardiovascular Cardiovascular Exam: RRR, No Murmur - GI/Abdominal GI/Abdominal Exam: Non Distended, Soft, Hypoactive Bowel Sounds Additional GI/Abdominal Exam Details: The incision looks good. No sign of infection. Abdomen is soft with incisional tenderness. Hypoactive bowel tones. - Neurological Neurological Exam: Alert, Oriented x 3 - Psychiatric Psychiatric Exam: Normal Affect, Normal Mood Assessment and Plan - Patient Problems (1) Status post partial colectomy Current Visit: Yes Status: Acute Priority: High Onset Date: 05/23/17 Comment: Overall doing very well. Await return of GI function. We'll increase his diet to clear liquids as tolerated. We'll Hep-Lock his IV. He is fluid long. We'll continue gentle diuresis. Patient is aware I'm leaving town this evening. Dr. Cruz will cover. Probably okay to full liquid diet tomorrow. Would consider discontinuing the Tena catheter and allowing the patient to shower tomorrow. Code(s): Z90.49 - Acquired absence of other specified parts of digestive tract (2) Colovesical fistula Current Visit: Yes Status: Acute Priority: High Comment: Surgically corrected. Probably can discontinue the Tena catheter tomorrow. Code(s): N32.1 - Vesicointestinal fistula
[2017-05-26] MEDS ORDERED: FUROSEMIDE 10 MG/1 ML - 2 ML VIAL IVP ONE (08:51)
[2017-05-26] MEDS: Pantoprazole Inj 40 MG in Normal Saline Flush 10 ML IVP SCH (09:02)
[2017-05-26] MEDS: Ertapenem Inj 1 GM in Sodium Chloride 0.9% 100 ML IV SCH (12:27)
[2017-05-27] MEDS: Acetaminophen 1000mg Inj 1,000 MG/100 ML VIAL IV SCH ×3 (00:50→16:59)
[2017-05-27] MEDS: HYDROmorphone 2 MG/1 ML IVP PRN ×6 (02:08→19:18)
[2017-05-27 05:17] LABS: BASOPHILS # (AUTO) 0.02 10*3/UL; BASOPHILS % (AUTO) 0.2 % (0-1); EOSINOPHILS # (AUTO) 0.45 10*3/UL; EOSINOPHILS % (AUTO) 4.1 % (0-8); Hematocrit [HCT] 33.2 % (42.0-52.0); Hemoglobin [HGB] 11.1 g/dL (14.0-18.0); LYMPHOCYTES # (AUTO) 1.27 10*3/uL; MEAN CORPUSCULAR HEMOGLOBIN 28.1 PG (27-31); MEAN CORPUSCULAR HGB CONC 33.4 g/dL (33-37); MEAN CORPUSCULAR VOLUME 84.1 FL (80-90); MEAN PLATELET VOLUME 8.8 FL (7.4-12.2); MONOCYTES # (AUTO) 1.02 10*3/UL (0.3-0.8); MONOCYTES % (AUTO) 9.2 % (5-15); NEUTROPHILS # (AUTO) 8.25 10*3/UL; NEUTROPHILS % (AUTO) 74.7 % (50-80); RED BLOOD COUNT 3.95 10^6/uL (4.70-6.10)
[2017-05-27 05:27] LABS: PLATELET MORPHOLOGY COMMENT NORMAL MORPHOLOGY (NORM); RBC MORPHOLOGY COMMENT NORMAL MORPHOLOGY (NORM); WBC MORPHOLOGY COMMENT NORMAL MORPHOLOGY (NORM)
[2017-05-27 05:31] LABS: BLOOD UREA NITROGEN 10 mg/dL (7-22); BUN/CREATININE RATIO 16.66 (6-20)
[2017-05-27] MEDS: Pantoprazole Inj 40 MG in Normal Saline Flush 10 ML IVP SCH (08:44)
--- NOTE | 2017-05-27 10:33 | PDOC(PROG) ---
Subjective Post Op Day: postop day 4 Tena Catheter: Yes Flatus: Yes Diet: Clear Liquids Date and Time of Service: 05/27/2017 at 10 AM Interval History: Patient was seen shortly for his skin up to walk. He does have some abdominal pain when he is walking but otherwise does not have any difficulties. He states he is passing flatus and having a soft bowel movement. He's only on clear liquid diet. He has not been placed on oral antibiotics. He does express concerns about going home with a Tena catheter. Objective : Data - Labs CBC and BMP: 05/27/17 04:41 05/27/17 04:41 - Vital Signs Vital Signs and I&O: Vital Signs - Last Taken Temperature 97.4 F 05/27/17 08:52 Pulse Rate 111 H 05/27/17 08:52 Respiratory Rate 22 05/27/17 08:52 Blood Pressure 130/90 05/27/17 08:52 Pulse Ox 94 05/27/17 08:52 Intake and Output (24hr x 4 totals) 05/25/17 05/26/17 05/27/17 05/28/17 05:59 05:59 05:59 05:59 Intake Total 2736 / 2736 2826 / 2826 2856 / 2856 Output Total 1700 / 1700 3700 / 3700 1675 / 1675 Balance 1036 / 1036 -874 / -874 1181 / 1181 Objective : Exam - General General Appearance: No Acute Distress - Neck Neck Exam: Full ROM - Respiratory Respiratory Exam: Clear to Auscultation - Bilaterally, Breathing Non Labored - Cardiovascular Cardiovascular Exam: RRR - GI/Abdominal GI/Abdominal Exam: Normal Bowel Sounds, Non Distended, Soft Assessment and Plan - Patient Problems (1) Status post partial colectomy Current Visit: Yes Status: Acute Priority: High Onset Date: 05/23/17 Code(s): Z90.49 - Acquired absence of other specified parts of digestive tract - Assessment / Plan Additional Assessment/Plan Details: Patient actually is doing very well. His white count has increased to 11,000. But also his hemoglobin is platelets 1 up therefore think is a leukemoid reaction more than a sinus infection. We will check another CBC in the morning. Patient needs have a Tena catheter in for at least 5 days. Will increase his diet to full liquids today. If he tolerates full liquids we can switch him to oral pain medication. Once we get his pain under control with oral medicines then he can be ready for discharge.
[2017-05-27] MEDS: Ertapenem Inj 1 GM in Sodium Chloride 0.9% 100 ML IV SCH (12:43)
[2017-05-27] MEDS: D5-1/2NS + 40mEq KCL 1,000 ML PRIMARY IV SCH (14:21)
[2017-05-28] MEDS: Acetaminophen 1000mg Inj 1,000 MG/100 ML VIAL IV SCH (01:45)
[2017-05-28 05:20] LABS: Hematocrit [HCT] 33.8 % (42.0-52.0); Hemoglobin [HGB] 11.2 g/dL (14.0-18.0); MEAN CORPUSCULAR HEMOGLOBIN 27.6 PG (27-31); MEAN CORPUSCULAR HGB CONC 33.1 g/dL (33-37); MEAN CORPUSCULAR VOLUME 83.3 FL (80-90); MEAN PLATELET VOLUME 8.5 FL (7.4-12.2); RED BLOOD COUNT 4.06 10^6/uL (4.70-6.10)
[2017-05-28 05:45] LABS: BAND NEUTROPHILS % 6 % (0-10); BASOPHILS % (MANUAL) 1 % (0-1); EOSINOPHILS % (MANUAL) 6 % (0-8); MONOCYTES % (MANUAL) 3 % (0-12); NEUTROPHILS % (MANUAL) 58 % (50-80); PLATELET MORPHOLOGY COMMENT SEE COMMENTS (NORM); RBC MORPHOLOGY COMMENT NORMAL MORPHOLOGY (NORM); WBC MORPHOLOGY COMMENT NORMAL MORPHOLOGY (NORM)
[2017-05-28] MEDS: HYDROmorphone 2 MG/1 ML IVP PRN (08:56)
[2017-05-28] MEDS: NORMAL SALINE 10 ML SYRINGE FLUSH IVP PRN (08:57)
[2017-05-28] MEDS: HYDROcodone-APAP 7.5 MG-325 MG TABLET PO PRN ×4 (11:09→22:20)
[2017-05-28] MEDS: LISINOPRIL 10 MG TABLET PO SCH (11:09)
--- NOTE | 2017-05-28 11:11 | PDOC(PROG) ---
Subjective Post Op Day: postop day 5 Pain Management: PO Tena Catheter: Yes Flatus: Yes Diet: Regular Date and Time of Service: 05/28/2017 at 11:15 Interval History: Patient overall feels very well. Still passing flatus and bowel movements. Tolerating diet. Objective : Data - Labs CBC and BMP: 05/28/17 04:46 05/27/17 04:41 - Vital Signs Vital Signs and I&O: Vital Signs - Last Taken Temperature 98.8 F 05/28/17 09:08 Pulse Rate 107 H 05/28/17 09:08 Respiratory Rate 20 05/28/17 09:08 Blood Pressure 127/88 05/28/17 09:08 Pulse Ox 91 05/28/17 09:08 Intake and Output (24hr x 4 totals) 05/26/17 05/27/17 05/28/17 05/29/17 05:59 05:59 05:59 05:59 Intake Total 2826 / 2826 2856 / 2856 2924 / 2924 114 / 114 Output Total 3700 / 3700 1675 / 1675 975 / 975 50 / 50 Balance -874 / -874 1181 / 1181 1949 / 1949 64 / 64 Objective : Exam - General General Appearance: No Acute Distress - GI/Abdominal GI/Abdominal Exam: Normal Bowel Sounds, Non Tender, Soft (Incision clean dry nonerythematous) Assessment and Plan - Patient Problems (1) Status post partial colectomy Current Visit: Yes Status: Acute Priority: High Onset Date: 05/23/17 Code(s): Z90.49 - Acquired absence of other specified parts of digestive tract - Assessment / Plan Additional Assessment/Plan Details: Overall he is doing very well. The catheter and one more day then he can be safely removed. He was just started on oral tablets today and his diet was advanced. We'll see if he tolerates these before letting him go home
[2017-05-28] MEDS ORDERED: Zolpidem Tab 5 MG TAB PO PRN (15:35)
[2017-05-29] MEDS: HYDROcodone-APAP 7.5 MG-325 MG TABLET PO PRN (04:22)
[2017-05-29 04:52] VITALS: O2SAT 94
[2017-05-29] MEDS ORDERED: PANTOPRAZOLE 40 MG TABLET PO SCH (07:00)
[2017-05-29 08:35] VITALS: BP 133/93; RESP 18; TEMP 98.2
--- NOTE | 2017-05-29 08:45 | DCSUMMARY ---
Discharge Summary Admit Date: 05/23/17 Discharge Date: 05/29/17 Admitting Diagnosis: colovesical fistula Discharge Diagnosis: Colovesical fistula. Hypertension Primary Surgery and Date: Colon resection with primary anastomosis on 05/23/2017 Hospital Course: On 05/23/2017 patient when the a low anterior colon resection with primary anastomosis for colovesical fistula from diverticulitis. He underwent the surgery without any problems. Patient did have some bloody stools been really did not drop his hemoglobin. He remained hemodynamically stable. No additional therapy need to do for the blood in the stools. Most likely this is just from surgery the surgery itself. Patient continued to do fine he is able to be placed on clear liquid dietand flatus. Is slowly advance his diet as tolerated. Patient had of the Tena catheter left for good 6 days to allow the bladder to drain and the colovesical fistula to heal. On the sixth postoperative day he is able to fully removed without any difficulty. Patient was doing fine and was able to be discharged to home. Exam - Vitals Vital Signs: Vital Signs Temperature 98.2 F Temperature Source Temporal Artery Scan Pulse Rate [Apical] 70 Pulse Rate [Pulse Oximeter] 105 Pulse Rate 117 Respiratory Rate 18 Blood Pressure [Right Arm] 133/93 Blood Pressure [Left Arm] 118/93 Blood Pressure 138/88 Pulse Ox 94 Oxygen Flow Rate 1 Oxygen Delivery Method Room Air Height 5 ft 7 in Weight 143 lb 12.8 oz - General General Appearance: No Acute Distress, Cooperative - Eye Eye Exam: POSITIVE: Normal Appearance, PERRL - Neck Neck Exam: Full ROM - Respiratory Respiratory Exam: POSITIVE: Clear to Auscultation - Bilaterally, Breathing Non Labored - GI/Abdominal GI/Abdominal Exam: POSITIVE: Normal Bowel Sounds, Non Tender, Non Distended, Soft Data Peritnent Studies: 05/25/17 05/25/17 05/25/17 04:22 04:22 17:30 WBC 7.84 7.80 Hgb 9.5 L 10.5 L Hct 29.6 L 32.1 L Sodium 136 Potassium 3.7 L Chloride 101 Carbon Dioxide 27 BUN 8 Creatinine 0.6 L 05/26/17 05/27/17 05/27/17 04:08 04:41 04:41 WBC 8.50 11.04 H Hgb 10.3 L 11.1 L Hct 31.5 L 33.2 L Sodium 133 L Potassium 4.1 Chloride 96 L Carbon Dioxide 25 BUN 10 Creatinine 0.6 L 05/28/17 04:46 WBC 7.45 Hgb 11.2 L Hct 33.8 L Sodium Potassium Chloride Carbon Dioxide BUN Creatinine Patient Problems - Patient Problem List (1) Status post partial colectomy Current Visit: Yes Status: Acute Onset Date: 05/23/17 Priority: High Code(s): Z90.49 - Acquired absence of other specified parts of digestive tract Category: Medical
[2017-05-29] MEDS: LISINOPRIL 10 MG TABLET PO SCH (09:05)
== END 2017-05-29 11:17 | disposition home or self-care (01) | DRG 331 ==
LOC: OPS 11:10 → MED/SURG 17:49
PROVIDERS: ADMIT Surgery; ATTEND Surgery